=== PATIENT | male | born 1985 | race Two or more races ===

== ENCOUNTER 2020-07-01 00:27 | Emergency (ER) | payer OTHER ==
[~2020-07-01] VITALS: Ht 182.9 cm; Wt 85.7 kg
[~2020-07-01 00:27] MED LIST: KETO10TA2 PO
[2020-07-01] MEDS ORDERED: ACID REDUCER20 M1 (01:13)
[2020-07-01] MEDS ORDERED: PEPCID40 MG PO (04:36)
== END 2020-07-01 04:50 ==
LOC: ER 00:27
DX: R10.13 Epigastric pain (principal)

== ENCOUNTER 2021-09-10 19:14 | Emergency (ER) | payer OTHER ==
[~2021-09-10] VITALS: Ht 182.9 cm; Wt 86.2 kg
[~2021-09-10 19:14] MED LIST changes: +ACID REDUCER20 M1; +PEPCID40 MG PO
[2021-09-10] MEDS ORDERED: IBU800 MG PO (22:05)
== END 2021-09-10 22:13 | disposition home or self-care (01) ==
LOC: ER 19:14
DX: S63.104A Unspecified dislocation of right thumb, initial encounter (principal); W19.XXXA Unspecified fall, initial encounter; Y92.89 Other specified places as the place of occurrence of the external cause

== ENCOUNTER 2021-10-25 15:30 | Emergency (ER) | payer OTHER ==
[~2021-10-25] VITALS: Ht 182.9 cm; Wt 86.2 kg
[~2021-10-25 15:30] MED LIST changes: +IBU800 MG PO
[2021-10-25] MEDS ORDERED: DICLOFENAC SODI75 MG PO (16:35)
== END 2021-10-25 17:07 | disposition home or self-care (01) ==
LOC: ER 15:30
DX: M94.0 Chondrocostal junction syndrome [Tietze] (principal)

== ENCOUNTER 2022-05-10 15:11 | Emergency (ER) | payer OTHER ==
[~2022-05-10] VITALS: Ht 208.3 cm; Wt 86.2 kg
[~2022-05-10 15:11] MED LIST changes: +DICLOFENAC SODI75 MG PO
== END 2022-05-10 21:37 | disposition home or self-care (01) ==
LOC: ER 15:11
DX: R51.9 Headache, unspecified (principal); E86.0 Dehydration; R11.10 Vomiting, unspecified

== ENCOUNTER 2022-06-01 09:39 | Outpatient (CLI) | payer OTHER | END 2022-06-01 09:53 | disposition home or self-care (01) | LOC: TOM 09:39 | PROVIDERS: ATTEND Urology | DX: R10.2 Pelvic and perineal pain (principal) ==

== ENCOUNTER → 2025-02-21 | Emergency (ER) | payer OTHER ==
[~2025-02-21] VITALS: Ht 182.9 cm; Wt 83.9 kg
== END | disposition left against medical advice (07) ==
LOC: ER 14:44
DX: Z53.21 Procedure and treatment not carried out due to patient leaving prior to being seen by health care provider (principal)